=== PATIENT | male | born 1985 | race African-American/Black ===

== ENCOUNTER 2018-10-09 08:03 | Inpatient (IN) | payer OTHER ==
[~2018-10-09 08:03] MED LIST: cefTRIAXone 1 GM in Sodium Chloride 0.9% 50 ML IV SCH
[2018-10-09] MEDS ORDERED: Morphine Sulfate 2 mg/mL 1mL Syr IVP ONE (08:48)
[2018-10-09] MEDS ORDERED: Sodium Chloride 0.9% 1,000 ML IV ONE (08:48)
--- NOTE | 2018-10-09 08:56 | ED Physician Chart ---
ED Chief Complaint/HPI - Patient Information Date Seen:: 10/09/18 Time Seen:: 08:25 Chief Complaint:: Abdominal Pain History of Present Illness:: onset x 24 hours of intermittent, crampy, sharp, diffuse abdominal pain and scrotal pain with N/V; pt denies trauma, H/As, S/T, neck pain, C/P, SOB, A/D/C, bleeding, fever, chills, or urinary s/s Allergies:: Allergies Allergy/AdvReac Type Severity Reaction Status Date / Time aspirin Allergy Verified 10/09/18 08:20 Vitals:: Vital Signs - 8 hr 10/09/18 08:27 Temp 98.4 F HR 61 RR 16 BP 133/84 O2 Sat % 97 Historian:: Patient Review:: Nurse's Note Reviewed ED Review of Systems - Review of Systems General/Constitutional: No fever, No chills, No weight loss, No weakness, No diaphoresis, No edema, No loss of appetite Skin: No skin lesions, No rash, No bruising Head: No headache, No light-headedness Eyes: No loss of vision, No pain, No diplopia ENT: No earache, No nasal drainage, No sore throat, No tinnitus Neck: No neck pain, No swelling, No thyromegaly, No stiffness, No mass noted Cardio Vascular: No chest pain, No palpitations, No PND, No orthopnea, No edema Pulmonary: No SOB, No cough, No sputum, No wheezing GI: Nausea, Vomiting, Diarrhea, Pain, No melena, No hematochezia, No constipation, No hematemesis G/U: No dysuria, No frequency, No hematuria, No nacturia Musculoskeletal: No bone or joint pain, No back pain, No muscle pain Endocrine: No polyuria, No polydipsia Psychiatric: No prior psych history, No depression, No anxiety, No suicidal ideation, No homicidal ideation, No auditory hallucination, No visual hallucination Hematopoietic: No bruising, No lymphadenopathy Allergic/Immuno: No urticaria, No angioedema Neurological: No syncope, No focal symptoms, No weakness, No paresthesia, No headache, No seizure, No dizziness, No confusion, No vertigo ED Past Medical History - Past Medical History Obtainable: Yes Past Medical History: No significant medical hx Family History: None Social History: Non Smoker, No Alcohol, No Drug Use, Single, Employed Surgical History: other (Undescended Testicular Surgery) Psychiatricy History: None Medication: Reviewed Family Medical History - Family Member Mother Hx Family Diabetes: Yes ED Physical Exam - Physical Examination General/Constitutional: Awake, Well-developed, well-nourished, Alert, No distress, GCS 15, Non-toxic appearing, Ambulatory Head: Atraumatic Eyes: Lids, conjuctiva normal, PERRL, EOMI Skin: Nl inspection, No rash, No skin lesions, No ecchymosis, Well hydrated, No lymphadenopathy ENMT: External ears, nose nl, TM canals nl, Nasal exam nl, Lips, teeth, gums nl , Oropharynx nl, Tonsils nl Neck: Nontender, Full ROM w/o pain, No JVD, No nuchal rigidity, No bruit, No mass, No stridor Respiratory: Nl effort/Exclusion, Clear to Auscultation, No Wheeze/Rhonchi/Rales Cardio Vascular: RRR, No murmur, gallop, rubs, NL S1 S2, Carotid/Femoral/Distal pulses equal bilaterally GI: No tenderness/rebounding/guarding, No organomegaly, No hernia, Normal BS's, Nondistended, No mass/bruits, No McBurney tenderness, Rectum exam nl : No CVA tenderness Extremities: No tenderness or effusion, Full ROM, normal strength in all extremities, No edema, Normal digits & nails Neuro/Psych: Alert/oriented, DTR's symmetric, Normal sensory exam, Normal motor strength, Judgement/insight normal, Mood normal, Normal gait, No focal deficits Misc: Normal back, No paraspinal tenderness ED Labs/Radiology/EKG Results - Lab Results Comments:: Reviewed - Radiology Results Comments:: CXR: COPD; NAD; U/S: + Right Scrotal Hernia containing peristalting Bowel - EKG Interpretations EKG Time:: 08:59 Rate & Rhythm: 60; NSR Comments:: non-specific st-t changes ED Septic Shock - . Is Septic Shock (SBP<90, OR Lactate>4 mmol\L) present?: No - <6hrs of presentation: Vital Signs: Vital Signs - 8 hr 10/09/18 08:27 Temp 98.4 F HR 61 RR 16 BP 133/84 O2 Sat % 97 ED Reassessment (Disposition) - Reassessment Reassessment Condition:: Improved - Diagnosis Diagnosis:: Abdominal Pain; N/V/D; Scrotal Pain; Right Scrotal Hernia; Hypokalemia; Hypoalbuminemia - Aftercare/Follow up Instructions Aftercare/Follow-Up Instructions:: Counseled pt regarding lab results/diagnosis & need follow up, Counseled pt & family regarding lab results/diagnosis & need follow up - Patient Disposition Discharge/Transfer:: Acute Care w/in this hosp Accepting Physician:: Dr. Boland Time Called:: 1015 Time Responded:: 10:15 Admitted to:: Med/Surg Spoke to:: Dr. Boland Admitting Medical Physician:: Dr. Boland Condition at Disposition:: Stable, Improved
[2018-10-09] MEDS ORDERED: Morphine Sulfate 2 mg/mL 1mL Syr ONE ×2 (08:57→11:11)
[2018-10-09 09:16] LABS: URINE SOURCE CLEAN C
[2018-10-09 09:20] LABS: % BASOPHILS 0.4 % (0.0-2.0); % EOSINOPHILS 2.1 % (0.0-5.0); % LYMPHOCYTES 16.2 % (20.0-50.0); % MONOCYTES 8.5 % (2.0-10.0); % NEUTROPHILS 72.8 % (40.0-80.0); EOSINOPHILE ABSOLUTE 0.1 Th/cmm (0.1-0.4); HEMATOCRIT 42.6 % (41.0-60); HEMOGLOBIN 14.3 gm/dL (12-16); LYMPHOCYTE ABSOLUTE 1.1 Th/cmm (1.5-3.0); MEAN CELL VOLUME 91.4 fl (80-99); MEAN CORPUSCULAR HEMOGLOBIN 30.6 pg (26.0-30.0); MEAN CORPUSCULAR HGB CONC 33.5 pg (28.0-36.0); MEAN PLATELET VOLUME 7.7 fl; MONOCYTE ABSOLUTE 0.6 Th/cmm (0.3-1.0); NEUTROPHILE ABSOLUTE 5.1 Th/cmm (1.8-8.0); PLATELET COUNT 254 Th/cmm (150-400); RED BLOOD COUNT 4.66 Mil/cmm (4.30-5.70); RED CELL DISTRIBUTION WIDTH 12.3 % (11.5-20.0); WHITE BLOOD COUNT 6.9 Th/cmm (4.8-10.8)
[2018-10-09 09:22] LABS: URINE BILIRUBIN NEGATIVE (NEGATIVE); URINE BLOOD NEGATIVE (NEGATIVE); URINE GLUCOSE (UA) NEGATIVE (NEGATIVE); URINE KETONE TRACE mg/dL (NEGATIVE); URINE LEUKOCYTE ESTERASE NEGATIVE (NEGATIVE); URINE NITRATE NEGATIVE (NEGATIVE); URINE PROTEIN NEGATIVE (NEGATIVE); URINE UROBILINOGEN 0.2 E.U./dL (0.2 - 1.0)
[2018-10-09 09:23] LABS: INR 1.17 (0.5-1.4); PROTHROMBIN TIME (TEST) 12.1 SECONDS (9.5-11.5)
[2018-10-09 09:26] LABS: URINE CLARITY CLEAR (CLEAR); URINE COLOR YELLOW; URINE MICROSCOPIC INDICATED? NO
[2018-10-09 09:31] LABS: ALB/GLOB RATIO 1.3 (1.0-1.8); ALBUMIN 3.9 gm/dL (4.2-5.5); ALKALINE PHOSPHATASE 78 U/L (34-104); AMYLASE SERUM 31 U/L (29-103); ANION GAP 13.1 (7.0-16.0); BILIRUBIN,TOTAL 0.8 mg/dL (0.3-1.0); BUN - UREA NITROGEN 5 mg/dL (7-25); CALCIUM SERUM 9.7 mg/dL (8.6-10.3); CARBON DIOXIDE 27.2 mEq/L (21.0-31.0); CHLORIDE 101 mEq/L (98-107); CHOLESTEROL 101 mg/dL (<200); CREATININE - SERUM 0.9 mg/dL (0.7-1.3); CREATININE KINASE 228 U/L (30-223); GFR AFRICAN-AMERICAN > 60.0 ml/min (>90); GFR NON AFRICAN-AMERICAN > 60.0 ml/min; GLUCOSE 104 mg/dL (70-105); HDL -HIGH DENSITY LIPOPROTEIN 49 mg/dL (23-92); LIPASE 9 U/L (11-82); POTASSIUM SERUM 3.3 mEq/L (3.5-5.1); SGOT 15 U/L (13-39); SGPT/ALT 15 U/L (7-52); SODIUM SERUM 138 mEq/L (136-145); TOTAL PROTEIN,SERUM 6.9 gm/dL (6.0-8.3); TRIGLYCERIDES 45 mg/dL (<150)
[2018-10-09 09:51] LABS: AMPHETAMINE URINE NEGATIVE (NEGATIVE); BARBITURATES URINE NEGATIVE (NEGATIVE); BENZODIAZEPINES QUAL URINE NEGATIVE (NEGATIVE); CANNABINOID THC POSITIVE (NEGATIVE); COCAINE METABOLITE QUAL URINE NEGATIVE (NEGATIVE); METHADONE URINE NEGATIVE (NEGATIVE); METHAMPHETAMINES QUAL URINE NEGATIVE (NEGATIVE); OPIATES (MORPHINE) QUAL. URINE NEGATIVE (NEGATIVE); PHENCYCLIDINE (PCP) URINE NEGATIVE (NEGATIVE); TRICYCLICS (TCA) QUAL. URINE NEGATIVE (NEGATIVE)
--- NOTE | 2018-10-09 10:08 | Diagnostic Imaging Report ---
CT scan abdomen and pelvis without intravenous contrast HISTORY: Pain Total DLP equals 274 CTDI equals 5.8 Axial sections were obtained from the xiphoid process down to the pubic symphysis. Exam is limited due to the absence of oral/bowel contrast and a very limited amount of intra-abdominal fat. The liver appears somewhat enlarged. No focal lesions. The spleen appears normal. Suboptimal delineation of the pancreatic margins. No definite focal lesions. No focal renal lesions are seen. No hydronephrosis. Multiple loops of dilated small bowel are seen. Changes associated with a distal small bowel obstruction cannot be excluded. Small amount of free fluid noted in the lower pelvis. No abnormal soft tissue masses seen within the pelvis. Asymmetric enlargement of the right hemiscrotum with heterogeneity. Correlation with physical examination and if necessary an ultrasound study would provide for further assessment. IMPRESSION: 1. Multiple loops of dilated fluid-filled small bowel. Changes associated with a distal small bowel obstruction cannot be excluded 2. Small amount of ascites along with small amount of free fluid within the lower pelvis. 3. Asymmetric enlargement of the right hemiscrotum with heterogeneity. The findings should be correlated with physical examination. If necessary, an ultrasound exam would provide for further assessment. 4. Hepatomegaly
--- NOTE | 2018-10-09 10:17 | Diagnostic Imaging Report ---
Testicular/groin ultrasound HISTORY: Pain, swelling The right testis measures 3.2 x 2.2 x 2.4 cm. No focal parenchymal lesions. Normal testicular vascular flow. There is a right hydrocele along with density consistent with bowel. Findings correspond to changes noted on a CT scan on 10/09/2018. The right epididymis appears normal. The left testis measures 4.7 x 2.6 x 2.2 cm. No focal parenchymal lesions. Normal testicular vascular flow. IMPRESSION: 1. Findings consistent with a right inguinal hernia associated with bowel within the right hemiscrotum. Small right hydrocele.
--- NOTE | 2018-10-09 10:22 | Diagnostic Imaging Report ---
Portable chest x-ray History: Pain Allowing for portable technique the heart size is normal. No focal pulmonary parenchymal processes. No hilar or mediastinal abnormalities. Impression: No acute abnormalities.
[2018-10-09] MEDS ORDERED: Potassium Chloride 20 mEq ER Tab PO ONE ×2 (10:35→11:11)
[2018-10-09] MEDS ORDERED: Morphine Sulfate 2 mg/mL 1mL Syr IV STA (11:09)
[2018-10-09] MEDS ORDERED: Morphine Sulfate 2 mg/mL 1mL Syr IM STA (11:09)
[2018-10-09] MEDS: D5-0.45NS 1,000 ML IV SCH ×2 (12:52→22:39)
[2018-10-09] MEDS: Morphine Sulfate 2 mg/mL 1mL Syr IVP PRN ×2 (12:53→16:56)
[2018-10-09 15:21] VITALS: BP 128/92
[2018-10-09] MEDS ORDERED: Diatrizoate Meglumine/Diatri 30 mL Sol ONE (18:15)
[2018-10-09] MEDS: metroNIDAZOLE 500mg/NS 100mL 500 MG/100 ML BAG IV SCH (22:40)
[2018-10-09] MEDS ORDERED: fentaNYL Citrate 100 mcg/2mL Vial ONE ×2 (23:16→23:27)
[2018-10-09] MEDS ORDERED: Neostigmine 10mg/10mL Vial ONE (23:28)
[2018-10-09] MEDS ORDERED: Propofol **SURGERY USE ONLY** 20 ML IV ONE (23:28)
[2018-10-09] MEDS ORDERED: Bupivacaine 0.25% W/Ep 10 mL Vial ONE (23:41)
[2018-10-10] MEDS ORDERED: Albuterol Nebulizer 2.5mg/3mL HHN ONE (00:55)
--- NOTE | 2018-10-10 01:12 | Operative Report ---
DATE OF SURGERY: IDENTIFICATION: A 33 years of age male. PREOPERATIVE DIAGNOSIS: Right inguinal hernia. POSTOPERATIVE DIAGNOSIS: Right inguinal hernia, indirect type with hydrocele. PROCEDURE PERFORMED: Right indirect inguinal hernia repair with right hernia sac and hydrocele removed and sent to pathology for analysis. ANESTHESIA: This was done under general anesthesia by Dr. Vazquez. DESCRIPTION OF PROCEDURE: Under general anesthesia, the patient was prepped and draped in usual sterile fashion. The incision was made over what looks like a previous incision, very small incision that could have been a pediatric incision. The patient does not recall any previous surgery. The incision was made and brought down to the external oblique fascia. The inguinal canal was identified. A hernia was identified with the sac allowing a digital index finger through into the peritoneal cavity. We isolated the sac from the spermatic cord as we isolated this spermatic cord with a Constantino drain. We found a hydrocele alongside the hernia sac, which was removed and marsupialized with 3-0 chromic catgut suture and the sac itself was ligated high and sent to pathology for analysis. Throughout this time, we protected the spermatic cord and then placed a small PerFix plug to the opening of the inguinal hernia canal and secured there with 2-0 Vicryl suture and then a flat mesh was anchored to the pubic tubercle with a one stitch of Prolene and the other stitches surrounding the flat mesh was opposed to the fascial planes with 2-0 Vicryl. We then closed with 2-0 Vicryl of the Carlos's fascia and a 4-0 Vicryl subcuticular stitch allowing about 20 mL of Marcaine 0.25% with epinephrine for perioperative pain management. The patient tolerated procedure well. All instrument, sponge count were correct. Estimated blood loss was maybe 30 minutes. JOB# [id number]
[2018-10-10] MEDS ORDERED: APAP/Oxycodone 5/325mg Tab PO PRN (02:05)
[2018-10-10] MEDS ORDERED: Acetaminophen 500 MG TAB PO PRN (02:05)
[2018-10-10] MEDS ORDERED: D5-0.45NS 1,000 ML IV SCH (02:07)
[2018-10-10] MEDS ORDERED: HYDROmorphone 1 mg/mL 1mL Syr IVP PRN (02:12)
[2018-10-10] MEDS: metroNIDAZOLE 500mg/NS 100mL 500 MG/100 ML BAG IV SCH ×2 (05:36→12:20)
[2018-10-10 07:15] LABS: % BASOPHILS 0.9 % (0.0-2.0); % EOSINOPHILS 1.3 % (0.0-5.0); % LYMPHOCYTES 13.3 % (20.0-50.0); % MONOCYTES 12.1 % (2.0-10.0); % NEUTROPHILS 72.4 % (40.0-80.0); BASOPHILE ABSOLUTE 0.1 Th/cumm (0-0.2); EOSINOPHILE ABSOLUTE 0.1 Th/cmm (0.1-0.4); HEMATOCRIT 41.6 % (41.0-60); LYMPHOCYTE ABSOLUTE 0.9 Th/cmm (1.5-3.0); MEAN CELL VOLUME 91.9 fl (80-99); MEAN CORPUSCULAR HGB CONC 33.7 pg (28.0-36.0); MEAN PLATELET VOLUME 7.8 fl; MONOCYTE ABSOLUTE 0.8 Th/cmm (0.3-1.0); NEUTROPHILE ABSOLUTE 4.8 Th/cmm (1.8-8.0); PLATELET COUNT 234 Th/cmm (150-400); RED BLOOD COUNT 4.53 Mil/cmm (4.30-5.70); RED CELL DISTRIBUTION WIDTH 12.2 % (11.5-20.0); WHITE BLOOD COUNT 6.7 Th/cmm (4.8-10.8)
[2018-10-10 07:19] LABS: ALB/GLOB RATIO 1.3 (1.0-1.8); ALBUMIN 3.3 gm/dL (4.2-5.5); ALKALINE PHOSPHATASE 66 U/L (34-104); ANION GAP 9.1 (7.0-16.0); BILIRUBIN,TOTAL 0.8 mg/dL (0.3-1.0); BUN - UREA NITROGEN 4 mg/dL (7-25); CALCIUM SERUM 8.8 mg/dL (8.6-10.3); CARBON DIOXIDE 28.7 mEq/L (21.0-31.0); CHLORIDE 105 mEq/L (98-107); CREATININE - SERUM 1.1 mg/dL (0.7-1.3); GFR AFRICAN-AMERICAN > 60.0 ml/min (>90); GFR NON AFRICAN-AMERICAN > 60.0 ml/min; GLUCOSE 102 mg/dL (70-105); POTASSIUM SERUM 3.8 mEq/L (3.5-5.1); SGOT 13 U/L (13-39); SGPT/ALT 12 U/L (7-52); SODIUM SERUM 139 mEq/L (136-145); TOTAL PROTEIN,SERUM 5.8 gm/dL (6.0-8.3)
--- NOTE | 2018-10-10 08:43 | Diagnostic Imaging Report ---
CT scan abdomen and pelvis (with oral/bowel contrast) HISTORY: Abdominal distention Total DLP equals 297 CTDI equals 6.1 Axial sections were obtained from the xiphoid process down to the pubic symphysis. The liver appears somewhat enlarged. No focal lesions. The spleen appears normal. No focal amenities seen within the pancreas. No focal renal lesions. Multiple loops of dilated small bowel are seen. No significant colonic dilatation. Moderate amount of free fluid noted in the lower pelvis. There is a right inguinal hernia but appears to be associated with small bowel. Strangulation/incarceration cannot be excluded. IMPRESSION: 1. Multiple loops of dilated small bowel associated with a right inguinal hernia. Incarceration/strangulation cannot be excluded. 2. Moderate free fluid within the lower posterior pelvis. 3. Hepatomegaly
[2018-10-10] MEDS ORDERED: Influenza Vaccine (5 yr & older) 0.5 ml Syr IM ONE (09:00)
[2018-10-10] MEDS ORDERED: Pneumococcal Vaccine 0.5 mL Vial IM ONE (09:00)
[2018-10-10] MEDS: KCL 20mEq/100mL Premix 20 MEQ/100 ML PIGGYBACK IV SCH ×2 (09:24→12:21)
--- NOTE | 2018-10-10 09:33 | History & Physical ---
ADMIT DATE: 10/09/2018 CHIEF COMPLAINT: Right-sided abdominal pain with worsening/increase right inguinal hernia size. HISTORY OF PRESENT ILLNESS: This is a 33-year-old gentleman with a history of right-sided inguinal hernia for about 14 years. He states that it has gradually gotten worse over the years with intermittent pain, but yesterday he had severe pain when he came out of a long flight. The pain was intermittent, sharp and it radiated to his right testicle. Pertinent findings at the ED included a scrotal ultrasound showing consistency with a right inguinal hernia associated with bowel within the right hemiscrotum. There was a small right hydrocele noted. CT scan showed: 1. Multiple loops of dilated fluid filled small bowel. Changes associated with distal small-bowel obstruction. 2. Small amounts of ascites with small amounts of free fluid within the lower pelvis. 3. Asymmetric enlargement of the right hemiscrotum with heterogenicity. 4. Hepatomegaly. The patient was admitted to the medical/surgical floor and has undergone a right indirect inguinal hernia repair with right hernia sac and hydrocele removed. His pain is much better controlled but now he is complaining of sore throat, likely secondary to the intubation. Prior to the admission, the patient denied any nausea, vomiting, diarrhea, fever or chills. PAST MEDICAL HISTORY: As noted above. PAST SURGICAL HISTORY: As noted above. FAMILY HISTORY: Likely noncontributory to this admission. SOCIAL HISTORY: Denies any tobacco, ETOH or illicit drug usage. ALLERGIES: ALLERGIC TO ASPIRIN. OUTPATIENT MEDICATIONS: None. REVIEW OF SYSTEMS: Prior to admission, GENERAL: No fever, chills. No recent weight loss. CARDIOVASCULAR: No chest pain or palpitations. PULMONARY: No cough or phlegm production. GASTROINTESTINAL: Please refer to the HPI. GENITOURINARY: No bladder habit changes except for the right scrotal enlargement. NEUROLOGIC: No changes in vision, no headaches, no syncope. PHYSICAL EXAMINATION: VITAL SIGNS: Temperature 99.0, pulse 76, respirations 18, blood pressure 127/65, satting 98% on room air. GENERAL: Well-developed, well-nourished gentleman, not in acute distress. HEAD AND NECK: Normocephalic, atraumatic. Pupils reactive to light. Extraocular movements are intact. Oropharynx moist and clear. CARDIAC: Regular rate and rhythm without any murmurs. LUNGS: Clear to auscultation bilaterally. ABDOMEN: Soft, supple, with some tenderness to palpation around the incision site on the right groin area. There is normoactive bowel sounds. LOWER EXTREMITIES: There is no pedal edema. LABORATORY DATA: On admission, CBC was essentially within normal limits. INR 1.17. Chemistry was within normal limits except for potassium of 3.3 and CPK 228. Troponins were negative x 1 set. Lipase 9. UA was essentially within normal limits. DIAGNOSTIC DATA: Please refer to the HPI. ASSESSMENT: 1. Right inguinal hernia associated with the right hemiscrotum and small hydrocele. 2. Distal SBO 2ry to encarcerated hernia. 3. Intractable abdominal pain 2ry to above. 4. Hypokalemia-replete/monitor. PLAN: The patient has been admitted to the medical/surgical floor for supportive care and treatment and has undergone hernia repair without any complications. We will continue with current supportive care including IV fluids and empiric IV antibiotics. He is also on pain management and his diet will be advanced as tolerated. Anticipate discharge planning soon. JOB# [id number] LUZ MARIA
--- NOTE | 2018-10-11 14:29 | Pathology Report ---
[id number] Collection Date: 10/10/2018 Surgeon: Dr. Milind Johnson Specimen Description: Hernia sac. Gross Description: Received in formalin is a 5 x 1.8 x 0.5 cm portion of gallardo-smallwood fibromembranous connective tissue with a smooth glistening surface. Sectioning shows no focal lesions. Brand Engineer sections are submitted in one cassette. Microscopic Description: The histologic sections show fibromembranous connective tissue with areas of mild chronic inflammation and fibrosis. Diagnosis: Consistent with hernia sac, right inguinal hernia repair. JOB# [id number]
--- NOTE | 2018-10-11 22:53 | Discharge Summary ---
DATE OF DISCHARGE: 10/10/2018 ADMITTING DIAGNOSES: 1. Right inguinal hernia associated with bowel within the right hemiscrotum. 2. Distal small-bowel obstruction secondary to right inguinal hernia. 3. Hypokalemia. 4. Intractable abdominal pain 2ry to #1 and 2. SECONDARY DIAGNOSES: History of right inguinal hernia. DISCHARGE DIAGNOSES: Right inguinal hernia associated within the right hemiscrotum and small hydrocele leading to partial small-bowel obstruction, status post right indirect inguinal hernia repair with right hernia sac and hydrocele sac removed. CONSULTANTS: Dr. Johnson of Surgery. MAJOR DIAGNOSTICS AND PROCEDURES: Abdominal and pelvic CT scan on 10/09/2018 showed: 1. Multiple loops of dilated fluid filled small bowel. Changes associated with distal small-bowel obstruction cannot be excluded. 2. Small amount of ascites along with small amount of free fluid within the lower pelvis. 3. Asymmetric enlargement of the right hemiscrotum with heterogenicity. 4. Hepatomegaly. Scrotum ultrasound done on 10/09/2018: Findings consistent with right inguinal hernia associated with bowel within the right hemiscrotum. Small right hydrocele seen. CT of the abdomen and pelvis without contrast, repeat on 10/09/2018 showed: 1. Multiple loops of dilated small bowel associated with right inguinal hernia. Incarcerations/strangulation cannot be excluded. 2. Moderate free fluid within the right posterior pelvis. 3. Hepatomegaly and right indirect inguinal hernia repair with right hernia sac and hydrocele sac removed. It was performed on 10/09/2018 without any complications. BRIEF HOSPITAL COURSE: This is a 33-year-old gentleman with a 14 year history of right inguinal hernia that has gradually gotten worse over the years, but has been overall stable with reports of no major pain until yesterday when after a long flight, he started complaining of severe inguinal pain with radiation to the testicle. The pain was the worst he has experienced for the last 14 years, so therefore, he decided to come into the ED where he underwent the above-mentioned diagnostics. Clinically, the patient was noted to be stable with normal vital signs and his initial blood work does yielded a mild hypokalemia, otherwise the rest of his labs were within normal limits. He underwent the above-mentioned procedure on the day of admission with postop care being uneventful. Postop labs remained stable and his vital signs as well remain within normal limits. On admission, the patient was placed on IV fluids, empiric IV antibiotics, and pain management. MEDICATIONS ON DISCHARGE: Tylenol 500 mg 1 tab q. 4 hours p.r.n. for moderate pain and ibuprofen 800 mg 3 times a day with meals. DISPOSITION: The patient was discharged home to self-care. The patient was instructed to follow up with his primary care doctor within 3-[address] Johnson as scheduled for postop followup. [facility]# [id number] MTDElina
== END 2018-10-10 19:25 | disposition home or self-care (01) | DRG 351 ==
LOC: ER 08:03 → EDSEX 08:03 → MSI 11:12
PROVIDERS: ADMIT Internal Medicine; ATTEND Internal Medicine
PROC: 0YU50JZ Supplement Right Inguinal Region with Synthetic Substitute, Open Approach (ICD-10-PCS; principal; 2018-10-10)
DX: K40.90 Unilateral inguinal hernia, without obstruction or gangrene, not specified as recurrent (principal); R18.8 Other ascites; K56.609 Unspecified intestinal obstruction, unspecified as to partial versus complete obstruction; E44.1 Mild protein-calorie malnutrition; Z68.1 Body mass index [BMI] 19.9 or less, adult; E87.6 Hypokalemia; E88.09 Other disorders of plasma-protein metabolism, not elsewhere classified; N43.3 Hydrocele, unspecified; R16.0 Hepatomegaly, not elsewhere classified; Z88.8 Allergy status to other drugs, medicaments and biological substances
CPT/HCPCS: 36415-UA; 71045-TC; 76870-TC; 80053-TC; 80061-TC; 80307; 81003-TC; 82150-TC; 82550-TC; 82553; 83605; 83690-TC; 83880-TC; 84484-TC; 85025-TC; 85610-TC; 85730-TC; 90799; 93005; 94640; 94760; 96372; 96374; 96375; 96376; J0696; J1170; J1200; J1885; J2270; J2405; J2704; J2710; J3010; J3480; J7030; J7613; V2790; X6258; Z7610